=== PATIENT | male | born 1945 | race Caucasian/White ===

== ENCOUNTER 2020-07-15 09:48 | Outpatient (CLI) | payer OTHER, MEDICARE ==
--- NOTE | 2020-07-17 15:58 | MRI Report ---
PROCEDURE: Lumbar Spine W/O INDICATIONS: LEG WEAKNESS TECHNIQUE: Noncontrast sagittal T1 spin echo and T2 fast echo, sagittal STIR, axial T1 and T2 fast spin echo thr ough the lumbar spine. In cases with scoliosis, additional coronal T2 fast spin echo may be performe d. COMPARISON: None. FINDINGS: Image quality: Excellent. Alignment and Curvature: There are bilateral L5 pars defects with anterolisthesis of L5 on S1 measuri ng approximately 8 mm. There other vertebral bodies are normally aligned. Bone Marrow: Marrow is of normal overall signal. No acute vertebral body compression fractures. Spinal Cord: Conus medullaris terminates at the L1 level. Visualized cord demonstrates normal signa l and size. Paraspinous Soft Tissues: No paravertebral masses. T12-L1: No canal stenosis or foraminal stenosis. L1-L2: Mild disc bulge. Mild facet hypertrophy. No canal stenosis or foraminal stenosis. L2-L3: Mild disc bulge. Mild facet hypertrophy. No central canal stenosis. Moderate bilateral fora luis antonio narrowing with mild flattening deformity on the exiting bilateral L2 nerve roots. L3-L4: Disc bulge. Facet hypertrophy. No central canal stenosis. Moderate to severe bilateral lizy inal narrowing with flattening deformity on the exiting bilateral L3 nerve roots. L4-L5: Moderate disc bulge. Facet hypertrophy. Mild canal stenosis. Severe right foraminal narrowin g and moderately severe left foraminal narrowing with impression on the bilateral exiting L4 nerve ro ots. L5-S1: Bilateral L5 pars defects. Grade 1 anterolisthesis of L5 on S1. Large diffuse disc bulge. Fa cet hypertrophy. Moderate canal stenosis seen best on sagittal imaging. Axial imaging under estimates the degree of canal stenosis. The combination of anterolisthesis of L5 on S1 and bilateral foraminal disc bulges results in severe bilateral foraminal narrowing and bilateral L5 foraminal nerve root im pingement. IMPRESSION: 1. Findings are most significant at L5-S1. There are bilateral L5 pars defects. There is grade 1 ante rolisthesis of L5 on S1. There is moderate canal stenosis and there is severe bilateral foraminal alex rowing. 2. There is mild canal stenosis at L4-L5. 3. Significant multilevel foraminal narrowing. There is moderate bilateral foraminal narrowing at L2- L3, moderate to severe bilateral foraminal narrowing at L3-L4, severe right and moderately severe lef t foraminal narrowing at L4-L5, and severe bilateral foraminal narrowing at L5-S1. Reviewed by: Anton Chowdhury MD on 07/17/2020 3:57 PM PST Approved by: Anton Chowdhury MD on 07/17/2020 3:57 PM PST Station ID: [id number]
== END 2020-07-15 09:49 | disposition home or self-care (01) ==
LOC: DI 09:48
PROVIDERS: ATTEND Internal Medicine
DX: R53.1 Weakness (principal); R29.898 Other symptoms and signs involving the musculoskeletal system; M48.07 Spinal stenosis, lumbosacral region

== ENCOUNTER 2020-10-20 07:35 | Outpatient (CLI) | payer OTHER, MEDICARE ==
[2020-10-20 15:02] LABS: BILIRUBIN,URINE NEGATIVE (NEGATIVE); GLUCOSE, URINE (UA) NEGATIVE (NEGATIVE); KETONES,URINE (UA) NEGATIVE (NEGATIVE); LEUKOCYTE ESTERASE, URINE NEGATIVE (NEGATIVE); NITRITE,URINE NEGATIVE (NEGATIVE); OCCULT BLOOD,URINE TRACE-INTA (NEGATIVE); PH,URINE 5.5 PH (5.0-7.5); PROTEIN,URINE NEGATIVE (NEGATIVE); UROBILINOGEN,URINE 0.2 (NORMAL) E.U./dL (NORMAL)
[2020-10-20 15:12] LABS: CLARITY,URINE CLEAR (CLEAR)
== END 2020-10-20 07:36 | disposition home or self-care (01) ==
LOC: LAB.S 07:35
PROVIDERS: ATTEND Internal Medicine
DX: R39.15 Urgency of urination (principal); R60.9 Edema, unspecified
CPT/HCPCS: 81001; 81003; 87086

== ENCOUNTER 2020-11-10 09:33 | Outpatient (CLI) | payer OTHER ==
--- NOTE | 2020-11-10 10:23 | CT Report ---
PROCEDURE: HEAD WO INDICATIONS: MEMORY PROBLEMS, BALANCE PROBLEMS TECHNIQUE: Noncontrast 4.5 mm thick angled axial sections acquired from the foramen magnum to the vertex. For r adiation dose reduction, the following was used: automated exposure control, adjustment of mA and/or kV according to patient size. COMPARISON: None FINDINGS: Image quality: Excellent. CSF spaces: Basal cisterns are patent. No extra-axial fluid collections. The ventricles are symmet tre in size and shape. Brain: No intracranial bleeds or masses. There is cerebral volume loss for age, with resultant vent ricular and sulcal prominence. There are periventricular and deep white matter chronic small vessel ischemic changes. There is intracranial internal carotid artery atherosclerosis. Skull and face: Calvarium and visualized facial bones appear intact, without suspicious lesions. Sinuses: Visualized sinuses and mastoids are clear. IMPRESSION: No acute intracranial disease process. Reviewed by: Marta Hernandez MD, PhD on 11/10/2020 10:21 AM PDT Approved by: Marta Hernandez MD, PhD on 11/10/2020 10:21 AM PDT Station ID: [id number]
== END 2020-11-10 09:34 | disposition home or self-care (01) ==
LOC: DI 09:33
PROVIDERS: ATTEND Nurse Practitioner Family
DX: R26.89 Other abnormalities of gait and mobility (principal)

== ENCOUNTER 2021-03-07 08:30 | Outpatient (CLI) | payer OTHER, MEDICARE ==
--- NOTE | 2021-03-07 10:24 | MRI Report ---
PROCEDURE: Cervical Spine W/O INDICATIONS: HYPERREFLEXIA ARM AND LEG WEAKNESS TECHNIQUE: Noncontrast sagittal T1 spin echo and T2 fast spin echo, sagittal STIR, foraminal oblique sagittal T2 fast spin echo, and axial gradient echo or T2 fast spin echo through the cervical spine. COMPARISON: None. FINDINGS: Image quality: Excellent. Alignment and Curvature: Mild degenerative retrolisthesis of C6 on C7. Mild degenerative retrolisthes is of C5 on C6. Chronic anterior vertebral body height loss of C5 and C6. Trace degenerative retrolis thesis of C3 on C4. Reversal of normal lordotic curve of the cervical spine. Bone Marrow: Marrow demonstrates normal overall signal. Spinal Cord: At the level of high-grade canal stenosis, there is thinning of the cord and abnormal si gnal consistent with myelomalacia,, centered at C5-C6 and C6. No cerebellar tonsillar herniation. Paraspinous Soft Tissues: No paravertebral masses. Prevertebral soft tissues are normal in thicknes s. C2-C3: Mild disc bulge. No canal stenosis. Marked left facet hypertrophy. Severe left foraminal narr owing with left foraminal C3 nerve root impingement. C3-C4: Trace retrolisthesis of C3 on C4, diffuse posterior disc plus osteophyte, and short pedicles result in moderate canal stenosis with flattening of the ventral cord. There is a large right uncove rtebral joint osteophyte and a moderately large left vertebral joint osteophyte. There is bilateral f acet hypertrophy. There is marked right foraminal narrowing with obliteration of the right C4 nerve r oot. There is severe right lateral recess stenosis. There is moderate to severe left foraminal narrow ing with flattening deformity on the exiting left C4 nerve root. C4-C5: Diffuse posterior osteophyte with prominent bilateral uncovertebral joint osteophytes. Mild c anal stenosis. AP diameter of the canal is 9 mm. Bilateral facet hypertrophy. Severe bilateral forami nal narrowing with bilateral foraminal C5 nerve root impingement. C5-C6: Large bulky diffuse disc plus osteophyte, eccentric to the right, with high-grade canal steno sis and associated myelomalacia. Marked right lateral recess stenosis. Large bilateral uncovertebral joint osteophytes. Bilateral facet hypertrophy. Marked bilateral foraminal narrowing with bilateral f oraminal C6 nerve root impingement. C6-C7: Diffuse posterior disc plus osteophyte. Moderate to severe canal stenosis. Large bilateral un covertebral joint osteophytes with severe bilateral lateral recess stenosis. Bilateral facet hypertro phy. Marked bilateral foraminal narrowing with impingement on the bilateral C7 nerve roots. C7-T1: Mild disc bulge. No significant canal stenosis. Bilateral uncovertebral joint hypertrophy and facet arthropathy. Severe bilateral foraminal narrowing with impingement on the exiting bilateral C8 nerve roots. IMPRESSION: 1. Diffuse severe spondylitic change. 2. There is high-grade canal stenosis at C5-C6 with associated myelomalacia. Cord signal abnormality extends from C5-C6 through the C6 level. 3. Canal stenosis is moderate at C3-C4, mild at C4-C5, and moderate to severe at C6-C7. 4. Significant multilevel bilateral foraminal narrowing with multiple levels of severe or marked fora luis antonio narrowing with foraminal nerve root impingement, as described above. Reviewed by: Anton Chowdhury MD on 03/07/2021 10:23 AM PDT Approved by: Anton Chowdhury MD on 03/07/2021 10:23 AM PDT Station ID: [id number]
== END 2021-03-07 08:31 | disposition home or self-care (01) ==
LOC: DI 08:30
PROVIDERS: ATTEND Nurse Practitioner Family
DX: R29.2 Abnormal reflex (principal); R29.898 Other symptoms and signs involving the musculoskeletal system; M43.12 Spondylolisthesis, cervical region; G95.89 Other specified diseases of spinal cord; M48.02 Spinal stenosis, cervical region; M47.812 Spondylosis without myelopathy or radiculopathy, cervical region; M25.78 Osteophyte, vertebrae

== ENCOUNTER 2021-09-13 10:30 | Outpatient (CLI) | payer OTHER ==
--- NOTE | 2021-09-13 14:21 | XRAY Report ---
PROCEDURE: Cervical Spine 2 View INDICATIONS: NECK PAIN TECHNIQUE: 3 view(s) of the cervical spine were acquired. COMPARISON: MRI cervical spine 03/07/2021 FINDINGS: Bones: No fractures or dislocations to the C7-T1 level. The lateral masses of C1 appear intact on t he odontoid view. No suspicious bony lesions. Posterior fusion is present at C3-T1. It is noted anna t posterior fusion hardware is overlying the pedicle/lamina at C3 and C4 on lateral view. Fixation sc rews are noted overlying the C4 disc space as well as the posterior most aspect of the C5 vertebral b miracle as well as posterior most aspect of the C6 vertebral body. Fixation screws are noted overlying th e majority of the C7 and T1 vertebral bodies. Our hardware is intact without fracture. There is multi level moderate to severe disc space narrowing most severe at C5-6, C6-7. Multilevel uncovertebral hyp ertrophy are present. Soft tissues: No prevertebral soft tissue swelling. IMPRESSION: Multilevel surgical fusion with placement of surgical hardware as above. Reviewed by: Kimberly Maki MD on 09/13/2021 2:20 PM PDT Approved by: Kimberly Maki MD on 09/13/2021 2:20 PM PDT Station ID: [id number]
== END 2021-09-13 10:31 | disposition home or self-care (01) ==
LOC: DI.S 10:30
PROVIDERS: ATTEND Internal Medicine
DX: M47.812 Spondylosis without myelopathy or radiculopathy, cervical region (principal); Z98.1 Arthrodesis status

== ENCOUNTER 2021-11-01 11:36 | Outpatient (CLI) | payer MEDICARE, MEDICAID | END 2021-11-01 11:37 | disposition critical access hospital (66) | LOC: EMS 11:36 | DX: R53.1 Weakness (principal) | CPT/HCPCS: A0425; A0429 ==

== ENCOUNTER 2021-11-01 12:04 | Inpatient (IN) | payer MEDICARE, MEDICAID ==
--- NOTE | 2021-11-01 12:29 | ED Physician Documentation ---
History of Present Illness - Stated complaint Stated Complaint: WEAKNESS - Chief complaint Chief Complaint: Neuro - History obtained from History obtained from: Patient - History of Present Illness Timing: How many days ago (4) - Additonal information Additional information: 75-year-old male with no reported past medical history presents by EMS from home for several weeks of gradually worsening generalized weakness, worse in his lower extremities. Patient states that 6 months ago he had a cervical spinal fusion done at [facility] in [place], since that time he has noticed a gradual decline in his function, especially so in the last 4 to 5 days. EMS reports that the patient's apartment was extraordinarily filthy and poorly kept. Patient appeared to be covered in filth and in old, soiled clothes. Initial blood pressure was 90s systolic, however corrected to 100 systolic in route. On arrival patient stated that he felt weak all over, particularly in his bilateral lower extremities. He states that his lower extremities have gradually swollen since his discharge from the hospital, however he does not know the cause. It is increasingly difficult for him to get around the house. Denies any pain at this time. Review of Systems Ten Systems: 10 systems reviewed and negative Constitutional: denies: Fever, Chills, Myalgias, Fatigue, Weight Loss, Sweats, Reviewed and negative, Other Cardiac: denies: Chest pain / pressure, Palpitations, Pedal edema, Calf pain, Reviewed and negative, Other : denies: Dysuria, Frequency, Hesitancy, Unable to Void, Incontinent, Hematuria, Discharge, LMP, Vaginal bleeding, Irregular menses, Missed period, Now EGA, Control, Hysterectomy, Testicular pain, Testicular mass, Claros Problem, Reviewed and negative, Other Skin: denies: Rash, Lesions Neurologic: reports: Generalized weakness. denies: Focal weakness, Difficulty speaking, Syncope, Seizure PD PAST MEDICAL HISTORY - Allergies Allergies/Adverse Reactions: Allergies Allergy/AdvReac Type Severity Reaction Status Date / Time No Known Drug Allergies Allergy Verified 11/01/21 12:19 PD ED PE NORMAL - General General: Alert and oriented X 3, Other (hygiene poor, appears chronically ill) - HEENT HEENT: Atraumatic, PERRL, EOMI, Ears normal - Neck Neck: Supple, no meningeal sign, No bruit - Cardiac Cardiac: RRR, No murmur - Respiratory Respiratory: No respiratory distress, Clear bilaterally - Abdomen Abdomen: Normal bowel sounds, Soft, Non tender, Non distended - Back Back: No CVA TTP, No spinal TTP - Derm Derm: Normal color, Warm and dry, Other (decreased temperature bilateral feet, purple-su hue) - Extremities Extremities: No deformity, Normal ROM s pain, Other (Bilat 2+ edema to shins) - Neuro Neuro: Alert and oriented X 3, general claims agent 2-12 intact, No motor deficit, No sensory deficit - Psych Psych: Normal mood, Normal affect Results - Vitals Vitals: Vital Signs - 24 hr 11/01/21 11/01/21 12:14 14:00 Temperature 36.9 C Heart Rate 87 89 Respiratory 12 11 L Rate Blood Pressure 106/88 H 115/94 H O2 Saturation 100 97 Oxygen O2 Source Room air - EKG (time done) 1320 Rate: Rate (enter#) [place]: Normal Intervals: Normal TN Ischemia: T wave inversion, Other (No priors for comparison, no STEMI) - Labs Labs: Laboratory Tests 11/01/21 11/01/21 11/01/21 12:30 12:30 12:30 WBC 8.5 RBC 4.45 L Hgb 14.2 Hct 45.7 MCV 102.7 H MCH 31.9 H MCHC 31.1 L RDW 15.6 H Plt Count 196 MPV 12.1 H Neut # (Auto) 5.5 Lymph # (Auto) 2.1 [place] # (Auto) 0.8 Eos # (Auto) 0.1 Baso # (Auto) 0.0 Absolute Nucleated RBC 0.05 Nucleated RBC % 0.6 Sodium 133 L Potassium 4.3 Chloride 98 L Carbon Dioxide 21 Anion Gap 14.0 H BUN 26 H Creatinine 1.1 Estimated GFR (MDRD) 65 L Glucose 91 Calcium 9.2 Total Bilirubin 0.8 AST 155 H ALT 141 H Alkaline Phosphatase 173 H Troponin I High Sens 100.6 H* B-Natriuretic Peptide Total Protein 7.9 Albumin 3.9 Globulin 4.0 Albumin/Globulin Ratio 1.0 Urine Color Urine Clarity Urine pH Ur Specific [place] Urine Protein Urine Glucose (UA) Urine Ketones Urine Occult Blood Urine Nitrite Urine Bilirubin Urine Urobilinogen Ur Leukocyte Esterase Urine RBC Urine WBC Ur Squamous Epith Cells Urine Bacteria Urine Culture Comments 11/01/21 11/01/21 12:30 13:30 WBC RBC Hgb Hct MCV MCH MCHC RDW Plt Count MPV Neut # (Auto) Lymph # (Auto) [place] # (Auto) Eos # (Auto) Baso # (Auto) Absolute Nucleated RBC Nucleated RBC % Sodium Potassium Chloride Carbon Dioxide Anion Gap BUN Creatinine Estimated GFR (MDRD) Glucose Calcium Total Bilirubin AST ALT Alkaline Phosphatase Troponin I High Sens B-Natriuretic Peptide 1696 H Total Protein Albumin Globulin Albumin/Globulin Ratio Urine Color YELLOW Urine Clarity CLEAR Urine pH 5.5 Ur Specific [place] >=1.030 H Urine Protein TRACE Urine Glucose (UA) NEGATIVE Urine Ketones NEGATIVE Urine Occult Blood NEGATIVE Urine Nitrite NEGATIVE Urine Bilirubin NEGATIVE Urine Urobilinogen 0.2 (NORMAL) Ur Leukocyte Esterase NEGATIVE Urine RBC 0-5 Urine WBC 0-3 Ur Squamous Epith Cells RARE Squamous Urine Bacteria None Seen Urine Culture Comments NOT INDICATED PD MEDICAL DECISION MAKING - ED course ED course: Patient with generalized weakness, reported to be in filthy and unlivable conditions by EMS. No focal neurologic deficit, this is not a stroke alert. Bilateral pedal swelling and decreased temperature. Pulses are obtainable with Doppler, however will assess for vascular injury with ultrasound. Labs are significant for troponin of 100, elevated liver enzymes. There are no priors for comparison. EKG shows diffuse T wave inversions of uncertain chronicity. Patient adamantly denies any pain and states he has never had any pain, including in his chest. BNP is 1600, however chest x-ray is clear. BUN is moderately elevated, will give IV fluids for hydration. Patient does not have safe discharge plan and will admit for further treatment. Departure - Departure Disposition: 66 [facility] DC/Xfer Clinical Impression: Generalized weakness, Failure to thrive syndrome, adult, Liver enzyme elevation
[2021-11-01 12:38] LABS: BASOPHILS % (AUTO) 0.5 %; EOSINOPHILS # (AUTO) 0.1 10^3/uL (0.0-0.7); EOSINOPHILS % (AUTO) 0.6 %; HCT - HEMATOCRIT 45.7 % (42.0-52.0); HGB - HEMOGLOBIN 14.2 g/dL (14.0-18.0); LYMPHOCYTES # (AUTO) 2.1 10^3/uL (1.5-3.5); LYMPHOCYTES % (AUTO) 25.2 %; MEAN CORPUSCULAR HEMOGLOBIN 31.9 pg (27.0-31.0); MEAN CORPUSCULAR HGB CONC 31.1 g/dL (32.0-36.0); MEAN CORPUSCULAR VOLUME 102.7 fL (80.0-94.0); MEAN PLATELET VOLUME 12.1 fL (7.4-11.4); MONOCYTES # (AUTO) 0.8 10^3/uL (0.0-1.0); NEUTROPHILS # (AUTO) 5.5 10^3/uL (1.5-6.6); NEUTROPHILS % (AUTO) 64.2 %; NRBC ABSOLUTE COUNT (AUTO) 0.05 x10^3/uL; NUCLEATED RED BLOOD CELLS AUTO 0.6 /100WBC; PLT - PLATELET COUNT 196 10^3/uL (130-450); RED BLOOD COUNT 4.45 10^6/uL (4.70-6.10); RED CELL DISTRIBUTION WIDTH 15.6 % (12.0-15.0); WHITE BLOOD COUNT 8.5 x10^3/uL (4.8-10.8)
--- NOTE | 2021-11-01 12:52 | XRAY Report ---
PROCEDURE: Chest 1 View X-Ray INDICATIONS: gen weakness TECHNIQUE: One view of the chest was acquired. COMPARISON: None FINDINGS: Surgical changes and devices: Partially visualized cervical fixation screws are present. Lungs and pleura: No pleural effusions or pneumothorax. Lungs are clear. Lungs are hyperexpanded s uggestive COPD. Mediastinum: Mediastinal contours appear normal. Heart size is normal. Bones and chest wall: No suspicious bony lesions. Overlying soft tissues appear unremarkable. IMPRESSION: No acute pulmonary process. Reviewed by: Kimberly Maki MD on 11/01/2021 12:51 PM PDT Approved by: Kimberly Maki MD on 11/01/2021 12:51 PM PDT Station ID: [id number]
[2021-11-01 12:58] LABS: ALBUMIN 3.9 g/dL (3.2-5.5); BILIRUBIN,TOTAL 0.8 mg/dL (0.2-1.0); CALCIUM 9.2 mg/dL (8.5-10.3); CREATININE 1.1 mg/dL (0.6-1.2); POTASSIUM 4.3 mmol/L (3.5-5.0); TOTAL PROTEIN 7.9 g/dL (6.7-8.2)
--- NOTE | 2021-11-01 13:38 | Ultrasound Report ---
PROCEDURE: Duplex Lwr Ext Arterial Bilat INDICATIONS: COLD AND SWOLLEN LOWER EXTREMITIES TECHNIQUE: Color and pulse Doppler interrogation was performed of both lower extremity arterial systems, with im age documentation. COMPARISON: None FINDINGS: Right lower extremity: Common femoral artery: 38 cm/sec, with triphasic flow. Deep femoral artery: 41 cm/sec, with triphasic flow. Proximal superficial femoral artery: 52 cm/sec, with triphasic flow. Mid superficial femoral artery: 58 cm/sec, with triphasic flow. Distal superficial femoral artery: 40 cm/sec, with triphasic flow. Popliteal artery: 40 cm/sec, with triphasic flow. Posterior tibial artery: 30 cm/sec, with triphasic flow. Anterior tibial artery/dorsalis pedis: 52 cm/sec, with triphasic flow. Arizmendi-scale imaging description: Mild diffuse plaque Left lower extremity: Common femoral artery: 29 cm/sec, with triphasic flow. Deep femoral artery: 27 cm/sec, with triphasic flow. Proximal superficial femoral artery: 40 cm/sec, with triphasic flow. Mid superficial femoral artery: 49 cm/sec, with triphasic flow. Distal superficial femoral artery: 33 cm/sec, with triphasic flow. Popliteal artery: 34 cm/sec, with triphasic flow. Posterior tibial artery: 42 cm/sec, with triphasic flow. Anterior tibial artery/dorsalis pedis: 43 cm/sec, with triphasic flow. Arizmendi-scale imaging description: Mild diffuse plaque IMPRESSION: No evidence of arterial insufficiency to the bilateral lower extremities. Reviewed by: Devyn Lechuga MD on 11/01/2021 1:37 PM PDT Approved by: Devyn Lechuga MD on 11/01/2021 1:37 PM PDT Station ID: [id number]
[2021-11-01 13:53] LABS: BILIRUBIN,URINE NEGATIVE (NEGATIVE); GLUCOSE, URINE (UA) NEGATIVE (NEGATIVE); KETONES,URINE (UA) NEGATIVE (NEGATIVE); LEUKOCYTE ESTERASE, URINE NEGATIVE (NEGATIVE); NITRITE,URINE NEGATIVE (NEGATIVE); OCCULT BLOOD,URINE NEGATIVE (NEGATIVE); PH,URINE 5.5 PH (5.0-7.5); PROTEIN,URINE TRACE mg/dL (NEGATIVE); UROBILINOGEN,URINE 0.2 (NORMAL) E.U./dL (NORMAL)
[2021-11-01 14:01] LABS: BACTERIA,URINE None Seen /HPF (None Seen); CLARITY,URINE CLEAR (CLEAR); RBC,URINE 0-5 /HPF (0-5); SQUAMOUS EPITHELIAL CELL,UR RARE Squamous (<= Few); WBC,URINE 0-3 /HPF (0-3)
[2021-11-01] MEDS ORDERED: SODIUM CHLORIDE 0.9% 500 ML IV ONE (14:31)
[2021-11-01 18:26] LABS: ETOH - ETHANOL < 5.0 mg/dL
[2021-11-01 18:28] LABS: CK- CREATINE KINASE 1175 IU/L (22-269)
[2021-11-01 19:19] LABS: B. PARAPERTUSSIS- RESP PCR PAN NOT DETECTED; B. PERTUSSIS- RESP PCR PANEL NOT DETECTED; C. PNEUMONIAE- RESP PCR PANEL NOT DETECTED; CORONAVIRUS 229E-RESP PCR NOT DETECTED; CORONAVIRUS HKU1-RESP PCR NOT DETECTED; CORONAVIRUS NL63-RESP PCR NOT DETECTED; CORONAVIRUS OC43-RESP PCR NOT DETECTED; HUMAN METAPNEUMOVIRUS NOT DETECTED; INFLUENZA A- RESP PCR PANEL NOT DETECTED; INFLUENZA B - RESP PCR PANEL NOT DETECTED; M. PNEUMONIAE- RESP PCR PANEL NOT DETECTED; PARAINFLUENZA VIRUS 1 NOT DETECTED; PARAINFLUENZA VIRUS 2 NOT DETECTED; PARAINFLUENZA VIRUS 3 NOT DETECTED; PARAINFLUENZA VIRUS 4 NOT DETECTED; RHINOVIRUS/ENTEROVIRUS NOT DETECTED; RSV- RESP PCR PANEL NOT DETECTED; SARS-CoV-2 -RESP PCR PANEL NOT DETECTED
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
[2021-11-01] MEDS: SODIUM CHLORIDE 0.9% 1,000 ML IV SCH (20:50)
[2021-11-02 05:27] LABS: BASOPHILS # (AUTO) 0.1 10^3/uL (0.0-0.1); BASOPHILS % (AUTO) 0.7 %; EOSINOPHILS % (AUTO) 0.3 %; HCT - HEMATOCRIT 41.1 % (42.0-52.0); HGB - HEMOGLOBIN 13.1 g/dL (14.0-18.0); LYMPHOCYTES # (AUTO) 1.6 10^3/uL (1.5-3.5); LYMPHOCYTES % (AUTO) 17.3 %; MEAN CORPUSCULAR HEMOGLOBIN 32.2 pg (27.0-31.0); MEAN CORPUSCULAR HGB CONC 31.9 g/dL (32.0-36.0); MEAN PLATELET VOLUME 12.1 fL (7.4-11.4); MONOCYTES # (AUTO) 0.9 10^3/uL (0.0-1.0); MONOCYTES % (AUTO) 9.3 %; NEUTROPHILS # (AUTO) 6.6 10^3/uL (1.5-6.6); NEUTROPHILS % (AUTO) 71.7 %; NRBC ABSOLUTE COUNT (AUTO) 0.06 x10^3/uL; NUCLEATED RED BLOOD CELLS AUTO 0.7 /100WBC; PLT - PLATELET COUNT 202 10^3/uL (130-450); RED BLOOD COUNT 4.07 10^6/uL (4.70-6.10); RED CELL DISTRIBUTION WIDTH 15.8 % (12.0-15.0); WHITE BLOOD COUNT 9.2 x10^3/uL (4.8-10.8)
[2021-11-02 05:41] LABS: ALBUMIN 3.6 g/dL (3.2-5.5); BILIRUBIN,TOTAL 1.1 mg/dL (0.2-1.0); CREATININE 1.2 mg/dL (0.6-1.2); POTASSIUM 4.1 mmol/L (3.5-5.0); TOTAL PROTEIN 7.2 g/dL (6.7-8.2)
[2021-11-02] MEDS: SODIUM CHLORIDE 0.9% 1,000 ML IV SCH ×2 (06:04→15:43)
[2021-11-02] MEDS: ACETAMINOPHEN 325 MG TABLET PO PRN (06:04)
[2021-11-02] MEDS: SODIUM CHLORIDE FLUSH 0.9% 10 ML SYRINGE IVP SCH ×3 (09:52→16:20)
[2021-11-02] MEDS: ENOXAPARIN 40 MG/0.4 ML SYRINGE SUBQ SCH (09:52)
[2021-11-02] MEDS: MULTIVITAMIN W/MINERALS TABLET PO SCH (16:36)
--- NOTE | 2021-11-02 16:53 | PHARMACY PROGRESS NOTE ---
- Best Possible Medication History Admit Date and Time: 11/01/211944 Processed by: Pharmacy Medication History completed: Yes Patient Interview: Completed Secondary Source(s): Insurance records As the person ultimately responsible for medication therapy, providers are able to order a medication from an existing home medication list in [facility] via the "Reconcile Routine" prior to Confirmation of that medication by computer support analyst. Such practice is discouraged except when the physician, in their clinical judgment, deems that a medical need exists for a medication without regard to previous use.
[2021-11-02] MEDS: ONDANSETRON 4 MG/2 ML VIAL IVP PRN (17:05)
--- NOTE | 2021-11-02 18:46 | PROVIDER PROGRESS NOTE ---
Assessment/Plan - Problem List (1) Rhabdomyolysis Assessment/Plan: Likely secondary to patient's sedentary nature. His mobility and activities have been decreased due to spinal stenosis and recent C-spine surgery at [facility]. His sister came up from [facility] to help him recently. OT with home health was working with him at his residence. Creatinine kinase was 1175>> increased today to 1200 Continue IV hydration with normal saline. Rate is not aggressive to avoid pulm edema since his EF is not known and he has elevated troponins. We will monitor creatinine kinase daily. (2) Prerenal azotemia Conclusion/Plan: He is clinically very dehydrated. His BUN/creat have not yet improved with iv fluids. It was learned today that the patient cannot use utensils, he needs to be fed. He was getting Meals on Wheels but either forgot to feed himself or could not. We will continue to give IV fluids. Avoid nephrotoxins. Follow BMP daily (3) Failure to thrive syndrome, adult Conclusion/Plan: Suspect severe protein calorie malnutrition. We will consult nutrition to help manage. He needs feeding, has difficulty with utensils. Awaiting OT and PT evals Currently giving IV hydration with normal saline. We may add D5 for more calories (4) Generalized weakness Conclusion/Plan: PT/OT to evaluate and treat Suspect patient will benefit from further rehab at a SNF. Social work to help facilitate disposition plan (5) Eczema Conclusion/Plan: The patient has a very unique physical exam that shows very taut and thick skin, he cannot even make a fist because of how tight his skin is. He does not know his underlying diagnosis for this. Records were therefore requested from his PCP Dr. Guzman. The records indicate that he has HTN, COPD, glaucoma, spinal stenosis, hypothyroidism and eczema. Perhaps the eczema caused these skin changes along with dehydration He was not on any specific medicines for this, no creams or steroids. (6) Elevated troponin Conclusion/Plan: He has an elevated but flat troponins (100>> 82), and a moderately elevated be BNP (1696>> 2017 after iv hydration). Chest x-ray was clear, and no evidence of CHF clinically, but he is dehydrated. From Dr. Guzman's office records there is no cardiac history except for HTN. Will order an Echocardiogram (however today is Friday and we have no nursery technician here Friday through Friday). We will continue to give the IV hydration gingerly to avoid pulm edema. - Current Meds Current Meds: Current Medications Generic Name Dose Route Start Last Admin Trade Name Freq PRN Reason Stop Dose Admin Acetaminophen 650 mg 11/01/21 19:45 11/02/21 06:04 Acetaminophen 325 Mg Tablet PO 650 mg Q4HR PRN Administration Pain 1 to 4, or Fever Enoxaparin Sodium 40 mg 11/02/21 09:00 11/02/21 09:52 Enoxaparin 40 Mg/0.4 Ml Syringe SUBQ 40 mg DAILY STELLA Administration Sodium Chloride 1,000 mls @ 100 mls/hr 11/01/21 20:00 11/02/21 15:43 Normal Saline 0.9% IV 100 mls/hr .Q10H STELLA Administration Multivitamins/Minerals 1 tab 11/02/21 17:00 11/02/21 16:36 Multivitamin W/Minerals Tablet PO 1 tab DAILYWM STELLA Administration Ondansetron HCl 4 mg 11/01/21 19:45 11/02/21 17:05 Ondansetron 4 Mg/2 Ml Vial IVP 4 mg Q6HR PRN Administration Nausea / Vomiting Sodium Chloride 10 ml 11/02/21 01:00 11/02/21 16:20 Sodium Chloride Flush 0.9% 10 Ml Syringe IVP Not Given 0100,0900,1700 STELLA - Lab Result Fish Bone Diagrams: 11/03/21 03:45 11/03/21 04:16 - Additional Planning My Orders: My Active Orders 11/02/21 05:07 FOLATE [IAI] Routine VITAMIN B12 [IAI] Routine 11/02/21 10:33 Nutrition Consult [CONS] Routine 11/02/21 Dinner Cardiac Diet [DIET] 11/02/21 17:00 Multivitamin W/Minerals [Theragran M] 1 tab PO DAILYWM 11/03/21 09:00 Cholecalciferol [Vitamin D3] 50 mcg PO DAILY Subjective - Subjective Patient Reports: No Complaints Nursing Reports: Other (Needs to be fed) Objective Vital Signs: Vital Signs - 24 hr 11/01/21 11/01/21 11/02/21 20:00 21:00 00:00 Temperature 36.5 C 36.6 C 36.4 C L Heart Rate 90 Heart Rate [ 105 H 104 H Brachial] Heart Rate [ Sitting] Heart Rate [ Standing] Heart Rate [ Supine] Respiratory 15 19 18 Rate Blood Pressure 102/73 Blood Pressure 98/72 89/65 L [Right Brachial artery] Blood Pressure [Sitting] Blood Pressure [Standing] Blood Pressure [Supine] O2 Saturation 94 96 11/02/21 11/02/21 11/02/21 06:00 07:24 10:58 Temperature 36.2 C L 36.2 C L Heart Rate Heart Rate [ 108 H 102 H Brachial] Heart Rate [ 113 H Sitting] Heart Rate [ 115 H Standing] Heart Rate [ 105 H Supine] Respiratory 20 18 Rate Blood Pressure Blood Pressure 94/68 91/67 [Right Brachial artery] Blood Pressure 100/82 H [Sitting] Blood Pressure 86/70 L [Standing] Blood Pressure 87/64 L [Supine] O2 Saturation 92 11/02/21 11/02/21 11:00 15:32 Temperature 36.5 C Heart Rate Heart Rate [ 101 H Brachial] Heart Rate [ 113 H Sitting] Heart Rate [ 115 H Standing] Heart Rate [ 105 H Supine] Respiratory 19 Rate Blood Pressure Blood Pressure 97/70 [Right Brachial artery] Blood Pressure 100/82 H [Sitting] Blood Pressure 86/70 L [Standing] Blood Pressure 87/64 L [Supine] O2 Saturation 94 Oxygen O2 Source Room air I&O (Last 24 Hrs): Intake and Output Totals x24h 10/31/21 11/01/21 11/02/21 23:59 23:59 23:59 Intake Total 500 2388.333 Balance 500 2388.333 General: Alert, Other (Cachectic. MAle pattern baldness. Slow speech but talks at length but quietly (is very weak)) HEENT: Other (Dry mucosa) Neck: Supple Neuro: Alert, Other (generalized weakness, slow speech) Cardiovascular: Regular rate Respiratory: No respiratory distress Abdomen: Soft Extremities: No edema, Other (Skin is overall very thick and very dry and taut) - Results Results: Laboratory Results WBC 9.2 x10^3/uL (4.8-10.8) 11/02/21 05:07 RBC 4.07 10^6/uL (4.70-6.10) L 11/02/21 05:07 Hgb 13.1 g/dL (14.0-18.0) L 11/02/21 05:07 Hct 41.1 % (42.0-52.0) L 11/02/21 05:07 MCV 101.0 fL (80.0-94.0) H 11/02/21 05:07 MCH 32.2 pg (27.0-31.0) H 11/02/21 05:07 MCHC 31.9 g/dL (32.0-36.0) L 11/02/21 05:07 RDW 15.8 % (12.0-15.0) H 11/02/21 05:07 Plt Count 202 10^3/uL (130-450) 11/02/21 05:07 MPV 12.1 fL (7.4-11.4) H 11/02/21 05:07 Neut # (Auto) 6.6 10^3/uL (1.5-6.6) 11/02/21 05:07 Lymph # (Auto) 1.6 10^3/uL (1.5-3.5) 11/02/21 05:07 [place] # (Auto) 0.9 10^3/uL (0.0-1.0) 11/02/21 05:07 Eos # (Auto) 0.0 10^3/uL (0.0-0.7) 11/02/21 05:07 Baso # (Auto) 0.1 10^3/uL (0.0-0.1) 11/02/21 05:07 Absolute Nucleated RBC 0.06 x10^3/uL 11/02/21 05:07 Nucleated RBC % 0.7 /100WBC 11/02/21 05:07 Sodium 137 mmol/L (135-145) 11/02/21 05:07 Potassium 4.1 mmol/L (3.5-5.0) 11/02/21 05:07 Chloride 104 mmol/L (101-111) 11/02/21 05:07 Carbon Dioxide 18 mmol/L (21-32) L 11/02/21 05:07 Anion Gap 15.0 (6-13) H 11/02/21 05:07 BUN 26 mg/dL (6-20) H 11/02/21 05:07 Creatinine 1.2 mg/dL (0.6-1.2) 11/02/21 05:07 Estimated GFR (MDRD) 59 (>89) L 11/02/21 05:07 Glucose 88 mg/dL (70-100) 11/02/21 05:07 Calcium 9.0 mg/dL (8.5-10.3) 11/02/21 05:07 Magnesium 2.0 mg/dL (1.7-2.8) 11/02/21 05:07 Total Bilirubin 1.1 mg/dL (0.2-1.0) H 11/02/21 05:07 AST 244 IU/L (10-42) H 11/02/21 05:07 ALT 201 IU/L (10-60) H 11/02/21 05:07 Alkaline Phosphatase 147 IU/L (42-121) H 11/02/21 05:07 Total Creatine Kinase 1238 IU/L (22-269) H* 11/02/21 05:07 Troponin I High Sens 82.0 ng/L (2.3-19.7) H* 11/01/21 15:51 B-Natriuretic Peptide 2017 pg/mL (5-100) H 11/02/21 05:07 Total Protein 7.2 g/dL (6.7-8.2) 11/02/21 05:07 Albumin 3.6 g/dL (3.2-5.5) 11/02/21 05:07 Globulin 3.6 g/dL (2.1-4.2) 11/02/21 05:07 Albumin/Globulin Ratio 1.0 (1.0-2.2) 11/02/21 05:07 Urine Color YELLOW 11/01/21 13:30 Urine Clarity CLEAR (CLEAR) 11/01/21 13:30 Urine pH 5.5 PH (5.0-7.5) 11/01/21 13:30 Ur Specific [place] >=1.030 (1.002-1.030) H 11/01/21 13:30 Urine Protein TRACE mg/dL (NEGATIVE) 11/01/21 13:30 Urine Glucose (UA) NEGATIVE mg/dL (NEGATIVE) 11/01/21 13:30 Urine Ketones NEGATIVE mg/dL (NEGATIVE) 11/01/21 13:30 Urine Occult Blood NEGATIVE (NEGATIVE) 11/01/21 13:30 Urine Nitrite NEGATIVE (NEGATIVE) 11/01/21 13:30 Urine Bilirubin NEGATIVE (NEGATIVE) 11/01/21 13:30 Urine Urobilinogen 0.2 (NORMAL) E.U./dL (NORMAL) 11/01/21 13:30 Ur Leukocyte Esterase NEGATIVE (NEGATIVE) 11/01/21 13:30 Urine RBC 0-5 /HPF (0-5) 11/01/21 13:30 Urine WBC 0-3 /HPF (0-3) 11/01/21 13:30 Ur Squamous Epith Cells RARE Squamous (<= Few) 11/01/21 13:30 Urine Bacteria None Seen /HPF (None Seen) 11/01/21 13:30 Urine Culture Comments NOT INDICATED 11/01/21 13:30 Nasal Adenovirus (PCR) NOT DETECTED 11/01/21 18:13 Nasal B. parapertussis DNA (PCR) NOT DETECTED 11/01/21 18:13 Nasal Coronavir 229E PCR NOT DETECTED 11/01/21 18:13 Nasal Coronavir HKU1 PCR NOT DETECTED 11/01/21 18:13 Nasal Coronavir NL63 PCR NOT DETECTED 11/01/21 18:13 Nasal Coronavir OC43 PCR NOT DETECTED 11/01/21 18:13 Nasal Enterovir/Rhinovir PCR NOT DETECTED 11/01/21 18:13 Nasal Influenza B PCR NOT DETECTED 11/01/21 18:13 Nasal Influenza A PCR NOT DETECTED 11/01/21 18:13 Nasal Parainfluen 1 PCR NOT DETECTED 11/01/21 18:13 Nasal Parainfluen 2 PCR NOT DETECTED 11/01/21 18:13 Nasal Parainfluen 3 PCR NOT DETECTED 11/01/21 18:13 Nasal Parainfluen 4 PCR NOT DETECTED 11/01/21 18:13 Nasal RSV (PCR) NOT DETECTED 11/01/21 18:13 Nasal B.pertussis DNA PCR NOT DETECTED 11/01/21 18:13 Nasal C.pneumoniae (PCR) NOT DETECTED 11/01/21 18:13 Zach Human Metapneumo PCR NOT DETECTED 11/01/21 18:13 Nasal M.pneumoniae (PCR) NOT DETECTED 11/01/21 18:13 Nasal SARS-CoV-2 (PCR) NOT DETECTED 11/01/21 18:13 Ethyl Alcohol < 5.0 mg/dL 11/01/21 18:05
[2021-11-02 19:16] LABS: FOLATE 14.58 ng/mL (5.90 - >24.8)
[2021-11-02] MEDS: CALCIUM CARB (OYSTER SHELL) 500 MG TABLET PO SCH (20:25)
[2021-11-02] MEDS ORDERED: CHOLECALCIFEROL 400 UNIT TABLET PO SCH (21:00)
[2021-11-03] MEDS: SODIUM CHLORIDE FLUSH 0.9% 10 ML SYRINGE IVP SCH ×3 (00:22→17:05)
[2021-11-03] MEDS: SODIUM CHLORIDE 0.9% 1,000 ML IV SCH (01:09)
[2021-11-03] MEDS: ACETAMINOPHEN 325 MG TABLET PO PRN (01:14)
[2021-11-03 03:51] LABS: BASOPHILS % (AUTO) 0.3 %; HCT - HEMATOCRIT 43.5 % (42.0-52.0); HGB - HEMOGLOBIN 13.2 g/dL (14.0-18.0); LYMPHOCYTES # (AUTO) 1.5 10^3/uL (1.5-3.5); LYMPHOCYTES % (AUTO) 9.4 %; MEAN CORPUSCULAR HEMOGLOBIN 32.1 pg (27.0-31.0); MEAN CORPUSCULAR HGB CONC 30.3 g/dL (32.0-36.0); MEAN CORPUSCULAR VOLUME 105.8 fL (80.0-94.0); MEAN PLATELET VOLUME 12.5 fL (7.4-11.4); MONOCYTES # (AUTO) 1.1 10^3/uL (0.0-1.0); MONOCYTES % (AUTO) 7.2 %; NEUTROPHILS # (AUTO) 12.7 10^3/uL (1.5-6.6); NEUTROPHILS % (AUTO) 82.2 %; NRBC ABSOLUTE COUNT (AUTO) 0.15 x10^3/uL; PLT - PLATELET COUNT 201 10^3/uL (130-450); RED BLOOD COUNT 4.11 10^6/uL (4.70-6.10); RED CELL DISTRIBUTION WIDTH 16.4 % (12.0-15.0); WHITE BLOOD COUNT 15.5 x10^3/uL (4.8-10.8)
[2021-11-03 05:00] LABS: ALBUMIN 3.3 g/dL (3.2-5.5); ALBUMIN/GLOBULIN RATIO 0.9 (1.0-2.2); BILIRUBIN,TOTAL 1.4 mg/dL (0.2-1.0); CALCIUM 8.9 mg/dL (8.5-10.3); CREATININE 1.5 mg/dL (0.6-1.2); POTASSIUM 5.2 mmol/L (3.5-5.0)
[2021-11-03] MEDS: HYDROmorphone 0.5 MG/0.5 ML SYRINGE IVP PRN (07:21)
--- NOTE | 2021-11-03 08:26 | CT Report ---
PROCEDURE: CT abdomen pelvis without contrast INDICATIONS: Abdominal pain, hypotension TECHNIQUE: Noncontrast 5 mm thick sections acquired from the diaphragms to the symphysis. 5 mm coronal and sagi ttal reformats were then performed. For radiation dose reduction, the following was used: automated exposure control, adjustment of mA and/or kV according to patient size. COMPARISON: None. FINDINGS: Image quality: Excellent. ABDOMEN: Lung bases: Bibasilar pleural effusions with compressive atelectasis. Pericardial effusion measures u p to 1.5 cm in thickness Solid organs: Liver and spleen are normal in size. Gallbladder unremarkable. Pancreas is normal in contours. No adrenal nodules. Kidneys are normal in size, without hydronephrosis or nephrolithiasi s. Peritoneum and bowel: Unenhanced bowel loops demonstrate normal wall thickness and caliber. Mild to moderate abdominal and pelvic ascites. Multiple diverticula arise from the sigmoid colon without evid ence of diverticulitis. Nodes and vessels: No retroperitoneal or mesenteric adenopathy by size criteria. Aorta and inferior vena cava are normal in caliber. Sclerotic vascular calcification noted in the abdominal aorta with out aneurysm. Miscellaneous: No ventral hernias. PELVIS: Genitourinary: Bladder wall thickness is normal. Miscellaneous: No inguinal hernias or adenopathy. Bones: No suspicious bony lesions. No vertebral body compression fractures. Diffuse subcutaneous e gwendolyn. 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 IMPRESSION: 1. Bibasal pleural effusions, abdominal and pelvic ascites, pericardial effusion and subcutaneous cory ma probably all related to fluid balance. 2. Sigmoid diverticulosis without evidence of diverticulitis. Reviewed by: Serjio Henley MD on 11/03/2021 7:25 AM HERIMLO Approved by: Serjio Henley MD on 11/03/2021 7:25 AM AKAISHA Station ID: [id number]
[2021-11-03] MEDS ORDERED: SODIUM CHLORIDE 0.9% 500 ML IV ONE (08:37)
[2021-11-03] MEDS ORDERED: CYANOCOBALAMIN 500 MCG TABLET PO SCH (09:00)
[2021-11-03] MEDS ORDERED: CHOLECALCIFEROL 25 MCG TABLET PO SCH (09:00)
[2021-11-03] MEDS: ENOXAPARIN 40 MG/0.4 ML SYRINGE SUBQ SCH (09:22)
[2021-11-03] MEDS: MULTIVITAMIN W/MINERALS TABLET PO SCH (10:03)
[2021-11-03] MEDS: ASPIRIN EC 325 MG TABLET PO SCH (10:03)
[2021-11-03] MEDS: CALCIUM CARB (OYSTER SHELL) 500 MG TABLET PO SCH ×2 (10:04→20:06)
[2021-11-03] MEDS: CHOLECALCIFEROL 5,000 UNIT CAPSULE PO SCH (10:04)
--- NOTE | 2021-11-03 12:24 | PROVIDER PROGRESS NOTE ---
Assessment/Plan - Problem List (1) Shock Assessment/Plan: His blood pressure this morning is 70-90 systolic. His lactic acid level is 8. He is hypothermic. He has cold extremities. He is more lethargic, falls asleep easily, speaks less than yesterday, but is oriented x3. He has other signs of organ failure from shock including worsening renal function, worsening LFTs, rising CK despite being on IV fluids. He appears to have multiorgan failure from shock. A bedside Echo was performed by myself (a Board-certified Drug Abuse Social Worker, credentialed in Echo here). The Echo showed: Small left atrium, massive right atrial enlargement. Small left ventricle, septum is concave inward toward the LV, paradoxical septal motion noted, LVEF approximately 55%. Massive right ventricular enlargement, RVH present, severely depressed RV contractility, consistent with R heart overload, longstanding. Dilated main pulm artery and coronary sinus, consistent with R heart overload, longstanding. Tricuspid valve prolapse noted with severe tricuspid regurgitation. Pulmonary artery systolic pressure calculated at greater than 35 mmHg. Mitral and aortic valve sclerotic thickening. Possible MVP. Trace mitral regurg. Mild pulmonic regurg. A moderate circumferential pericardial effusion is presnt, no evidence of tamponade by Doppler. The above results, results of lab tests and CT were discussed with his sister, who is at bedside today. We will try to treat with fluids and steroids (see below). If there is continued worsening of multi organs, the plan will be to stop treatment and focus on comfort. The patient's sister showed me his POLST which indicates he is wants no feeding tubes, no aggressive treatment, wants to focus on comfort. He is in critical condition and his prognosis is very poor. (2) Cor Pulmonale A CT abdomen was done this morning, due to worsening LFTs, worsening creat, new diarrhea and low BP. The CT was mostly remarkable for ascites fluid, pleural fluid, edema in tissues and a pericardial effusion. Has 2+ edema to the knees on physical exam. His EKG shows right axis deviation an RBBB. The combination of findings plus the Echo showed that he has significant right heart failure. The etiology of the cor pulmonale is not known but I suspect he might have primary pulmonary hypertension from a disease like scleroderma, since his skin is taut and thick. He is intravascularly volume depleted, even though he has leg edema, ascites and a pericardial effusion. This is all from severe cor pulmonale, severe RV failure, therefore poor forward cardiac output of the right ventricle, from probable pulmonary hypertension. Because the LV is underfilled, will restart fluids at a rapid rate. Will also start steroids empirically and because he is hypotensive we will use hydrocortisone 100 mg 3 times daily, like treatment for addisonian crisis. (3) Shock liver Conclusion/Plan: The LFTs are worsening. The patient has no alcohol intake history. The CT abdomen showed no masses or other liver abnormality. The ascites could be simply from right heart failure which is definitely present. This is most likely from shock liver, since he has worsening blood pressure, hypothermia, peripheral vasoconstriction on exam. Will treat with IV fluids to improve blood pressure and follow LFTs daily. (4) KENIA Conclusion/Plan: He is intravascularly volume depleted, even though he has leg edema, ascites and a pericardial effusion. This is all from severe cor pulmonale, severe RV failure, poor forward cardiac output of the right ventricle, from probable pulmonary hypertension. His BUN/creat have not yet improved with iv fluids. We will continue to give IV fluids. It was learned today that the patient cannot use utensils, he needs to be fed. Avoid nephrotoxins. Follow BMP daily (5) Rhabdomyolysis Assessment/Plan: Likely secondary to patient's sedentary nature. His mobility and activities have been decreased due to spinal stenosis and recent C-spine surgery at [facility]. His sister came up from [facility] to help him recently. OT with home health was working with him at his residence. Creatinine kinase was 1175>> 1200>> increased today to 1400 Will increase IV hydration rate, using normal saline. The iv rate was not aggressive to avoid pulm edema since his EF was not known and he had elevated troponins. We will monitor creatinine kinase daily. (6) Failure to thrive syndrome, adult Conclusion/Plan: Suspect severe protein calorie malnutrition. We will consult nutrition to help manage. He needs to be fed, has difficulty with utensils. Will change to a pureed diet with thin liquids IV will now have D5, for some calories (7) Generalized weakness Conclusion/Plan: PT/OT evaluated him and he fatigued yesterday after 3 seconds! If he survives, he will need rehab at a SNF. Social work to help facilitate disposition plan (8) Eczema Conclusion/Plan: The patient has a very unique physical exam that shows very taut and thick skin, he cannot even make a fist because of how tight his skin is. He does not know his underlying diagnosis for this. Records were therefore requested from his PCP Dr. Guzman. The records indicate that he has HTN, COPD, glaucoma, spinal stenosis, hypothyroidism and eczema. The sister at bedside today, said he has never had a biopsy to know if he has something else like scleroderma or Sjogren's syndrome or lupus He was not on any specific medicines for this, no creams or steroids. (9) Elevated troponin Conclusion/Plan: He has an elevated but flat troponins (100>> 82), and a moderately elevated be BNP (1696>> 2017 after iv hydration). Chest x-ray was clear, and no evidence of CHF clinically, but he is dehydrated. From Dr. Guzman's office records there is no cardiac history except for HTN. Will order an Echocardiogram (however today is Friday and we have no security system technician here Friday through Friday). We will continue to give the IV hydration gingerly to avoid pulm edema. - Current Meds Current Meds: Current Medications Generic Name Dose Route Start Last Admin Trade Name Freq PRN Reason Stop Dose Admin Acetaminophen 650 mg 11/01/21 19:45 11/03/21 01:14 Acetaminophen 325 Mg Tablet PO 650 mg Q4HR PRN Administration Pain 1 to 4, or Fever Aspirin 325 mg 11/03/21 09:00 11/03/21 10:03 Aspirin Ec 325 Mg Tablet PO Not Given DAILY STELLA Calcium Carbonate/Glycine 500 mg 11/02/21 21:00 11/03/21 10:04 Calcium Carb (Oyster Shell) 500 Mg Tablet PO Not Given BID STELLA Cholecalciferol 5,000 unit 11/03/21 09:00 11/03/21 10:04 Cholecalciferol 5,000 Unit Capsule PO Not Given DAILY STELLA Enoxaparin Sodium 40 mg 11/02/21 09:00 11/03/21 09:22 Enoxaparin 40 Mg/0.4 Ml Syringe SUBQ 40 mg DAILY STELLA Administration Hydromorphone HCl 0.5 mg 11/03/21 07:08 11/03/21 07:21 Hydromorphone 0.5 Mg/0.5 Ml Syringe IVP 0.5 mg Q4H PRN Administration PAIN Sodium Chloride 1,000 mls @ 100 mls/hr 11/01/21 20:00 11/03/21 02:40 Normal Saline 0.9% IV 0 mls/hr .Q10H STELLA Infusion Multivitamins/Minerals 1 tab 11/02/21 17:00 11/03/21 10:03 Multivitamin W/Minerals Tablet PO Not Given DAILYWM [facility] Ondansetron HCl 4 mg 11/01/21 19:45 11/02/21 17:05 Ondansetron 4 Mg/2 Ml Vial IVP 4 mg Q6HR PRN Administration Nausea / Vomiting Sodium Chloride 10 ml 11/02/21 01:00 11/03/21 07:32 Sodium Chloride Flush 0.9% 10 Ml Syringe IVP 10 ml 0100,0900,1700 STELLA Administration - Lab Result Fish Bone Diagrams: 11/03/21 03:45 11/03/21 04:16 - EKG Results EKG Interpreted Independently: Yes EKG Comparison: Unchanged from prior EKG EKG Findings: Normal sinus rhythm, rate 93, right axis deviation, right bundle branch block, inferior Q waves, lateral Q waves. Similar to admission EKG. - Diagnostic Imaging Results Diagnostic Imaging Results: Final report reviewed - Additional Planning My Orders: My Active Orders 11/02/21 17:00 Multivitamin W/Minerals [Theragran M] 1 tab PO DAILYWM 11/02/21 18:46 Miscellaenous Nursing Order [RC] ONCE 11/02/21 21:00 Calcium Carb (Oyster Shell) [Oysco-500] 500 mg PO BID 11/03/21 09:00 Aspirin EC [Ecotrin] 325 mg PO DAILY Cholecalciferol [Vitamin D3] 5,000 unit PO DAILY 11/03/21 10:40 LACTIC ACID, VENOUS [CHEM] Timed TROPONIN I HIGH SENSITIVITY [IAI] Timed 11/03/21 Lunch DIET [Dysphagia - Minced and Moist] [DIET] Subjective - Subjective Patient Reports: Other (More sleepy. Sister notices he is sleepier an weaker) Objective Vital Signs: Vital Signs - 24 hr 11/02/21 11/02/21 11/03/21 15:32 20:30 00:03 Temperature 36.5 C 36.4 C L 36.6 C Heart Rate [ 101 H 85 100 Brachial] Respiratory 19 18 14 Rate Blood Pressure 97/70 92/65 92/78 [Right Brachial artery] O2 Saturation 94 92 94 11/03/21 11/03/21 11/03/21 02:20 04:04 04:05 Temperature 36.3 C L 37.0 C 36.5 C Heart Rate [ 114 H 106 H 105 H Brachial] Respiratory 22 18 16 Rate Blood Pressure 114/95 H 97/64 93/61 [Right Brachial artery] O2 Saturation 96 94 95 11/03/21 11/03/21 11/03/21 04:36 04:56 06:06 Temperature 36.5 C 36.9 C 36.4 C L Heart Rate [ 104 H 107 H 100 Brachial] Respiratory 18 18 22 Rate Blood Pressure 91/56 L 91/62 94/67 [Right Brachial artery] O2 Saturation 96 96 89 L 11/03/21 11/03/21 06:47 08:36 Temperature 36.2 C L 36.2 C L Heart Rate [ 104 H 108 H Brachial] Respiratory 20 20 Rate Blood Pressure 111/89 H 89/72 L [Right Brachial artery] O2 Saturation Oxygen O2 Source Nasal cannula I&O (Last 24 Hrs): Intake and Output Totals x24h 11/01/21 11/02/21 11/03/21 23:59 23:59 23:59 Intake Total 500 3788.333 2295.000 Balance 500 3788.333 2295.000 General: Other (Lethargic but awakens to name, is oriented x3) HEENT: Other (Dry oral mucosa, good dentition) Neck: Supple, Other ((+) JVD in flat/supine position) Neuro: Alert, Non Focal Cardiovascular: Regular rate, No murmurs Respiratory: No respiratory distress, Breath sounds nml Abdomen: Normal bowel sounds, Soft, No tenderness Extremities: No clubbing, Other (2+ edema to the knees) - Results Results: Laboratory Results WBC 15.5 x10^3/uL (4.8-10.8) H 11/03/21 03:45 RBC 4.11 10^6/uL (4.70-6.10) L 11/03/21 03:45 Hgb 13.2 g/dL (14.0-18.0) L 11/03/21 03:45 Hct 43.5 % (42.0-52.0) 11/03/21 03:45 MCV 105.8 fL (80.0-94.0) H 11/03/21 03:45 MCH 32.1 pg (27.0-31.0) H 11/03/21 03:45 MCHC 30.3 g/dL (32.0-36.0) L 11/03/21 03:45 RDW 16.4 % (12.0-15.0) H 11/03/21 03:45 Plt Count 201 10^3/uL (130-450) 11/03/21 03:45 MPV 12.5 fL (7.4-11.4) H 11/03/21 03:45 Neut # (Auto) 12.7 10^3/uL (1.5-6.6) H 11/03/21 03:45 Lymph # (Auto) 1.5 10^3/uL (1.5-3.5) 11/03/21 03:45 Fisher # (Auto) 1.1 10^3/uL (0.0-1.0) H 11/03/21 03:45 Eos # (Auto) 0.0 10^3/uL (0.0-0.7) 11/03/21 03:45 Baso # (Auto) 0.0 10^3/uL (0.0-0.1) 11/03/21 03:45 Absolute Nucleated RBC 0.15 x10^3/uL 11/03/21 03:45 Nucleated RBC % 1.0 /100WBC 11/03/21 03:45 Sodium 134 mmol/L (135-145) L 11/03/21 04:16 Potassium 5.2 mmol/L (3.5-5.0) H 11/03/21 04:16 Chloride 102 mmol/L (101-111) 11/03/21 04:16 Carbon Dioxide 15 mmol/L (21-32) L 11/03/21 04:16 Anion Gap 17.0 (6-13) H 11/03/21 04:16 BUN 33 mg/dL (6-20) H 11/03/21 04:16 Creatinine 1.5 mg/dL (0.6-1.2) H 11/03/21 04:16 Estimated GFR (MDRD) 46 (>89) L 11/03/21 04:16 Glucose 120 mg/dL (70-100) H 11/03/21 04:16 Lactic Acid 8.0 mmol/L (0.5-2.2) H* 11/03/21 07:41 Calcium 8.9 mg/dL (8.5-10.3) 11/03/21 04:16 Magnesium 2.0 mg/dL (1.7-2.8) 11/02/21 05:07 Total Bilirubin 1.4 mg/dL (0.2-1.0) H 11/03/21 04:16 AST 980 IU/L (10-42) H 11/03/21 04:16 ALT 633 IU/L (10-60) H 11/03/21 04:16 Alkaline Phosphatase 145 IU/L (42-121) H 11/03/21 04:16 Total Creatine Kinase 1454 IU/L (22-269) H* 11/03/21 04:16 Troponin I High Sens 227.0 ng/L (2.3-19.7) H* 11/03/21 04:16 B-Natriuretic Peptide 3278 pg/mL (5-100) H 11/03/21 03:45 Total Protein 7.0 g/dL (6.7-8.2) 11/03/21 04:16 Albumin 3.3 g/dL (3.2-5.5) 11/03/21 04:16 Globulin 3.7 g/dL (2.1-4.2) 11/03/21 04:16 Albumin/Globulin Ratio 0.9 (1.0-2.2) L 11/03/21 04:16 Vitamin B12 2376 pg/mL (180-914) H 11/02/21 05:07 Folate 14.58 ng/mL (5.90 - >24.8) 11/02/21 05:07 Urine Color YELLOW 11/01/21 13:30 Urine Clarity CLEAR (CLEAR) 11/01/21 13:30 Urine pH 5.5 PH (5.0-7.5) 11/01/21 13:30 Ur Specific [place] >=1.030 (1.002-1.030) H 11/01/21 13:30 Urine Protein TRACE mg/dL (NEGATIVE) 11/01/21 13:30 Urine Glucose (UA) NEGATIVE mg/dL (NEGATIVE) 11/01/21 13:30 Urine Ketones NEGATIVE mg/dL (NEGATIVE) 11/01/21 13:30 Urine Occult Blood NEGATIVE (NEGATIVE) 11/01/21 13:30 Urine Nitrite NEGATIVE (NEGATIVE) 11/01/21 13:30 Urine Bilirubin NEGATIVE (NEGATIVE) 11/01/21 13:30 Urine Urobilinogen 0.2 (NORMAL) E.U./dL (NORMAL) 11/01/21 13:30 Ur Leukocyte Esterase NEGATIVE (NEGATIVE) 11/01/21 13:30 Urine RBC 0-5 /HPF (0-5) 11/01/21 13:30 Urine WBC 0-3 /HPF (0-3) 11/01/21 13:30 Ur Squamous Epith Cells RARE Squamous (<= Few) 11/01/21 13:30 Urine Bacteria None Seen /HPF (None Seen) 11/01/21 13:30 Urine Culture Comments NOT INDICATED 11/01/21 13:30 Nasal Adenovirus (PCR) NOT DETECTED 11/01/21 18:13 Nasal B. parapertussis DNA (PCR) NOT DETECTED 11/01/21 18:13 Nasal Coronavir 229E PCR NOT DETECTED 11/01/21 18:13 Nasal Coronavir HKU1 PCR NOT DETECTED 11/01/21 18:13 Nasal Coronavir NL63 PCR NOT DETECTED 11/01/21 18:13 Nasal Coronavir OC43 PCR NOT DETECTED 11/01/21 18:13 Nasal Enterovir/Rhinovir PCR NOT DETECTED 11/01/21 18:13 Nasal Influenza B PCR NOT DETECTED 11/01/21 18:13 Nasal Influenza A PCR NOT DETECTED 11/01/21 18:13 Nasal Parainfluen 1 PCR NOT DETECTED 11/01/21 18:13 Nasal Parainfluen 2 PCR NOT DETECTED 11/01/21 18:13 Nasal Parainfluen 3 PCR NOT DETECTED 11/01/21 18:13 Nasal Parainfluen 4 PCR NOT DETECTED 11/01/21 18:13 Nasal RSV (PCR) NOT DETECTED 11/01/21 18:13 Nasal B.pertussis DNA PCR NOT DETECTED 11/01/21 18:13 Nasal C.pneumoniae (PCR) NOT DETECTED 11/01/21 18:13 Zach Human Metapneumo PCR NOT DETECTED 11/01/21 18:13 Nasal M.pneumoniae (PCR) NOT DETECTED 11/01/21 18:13 Nasal SARS-CoV-2 (PCR) NOT DETECTED 11/01/21 18:13 Ethyl Alcohol < 5.0 mg/dL 11/01/21 18:05
[2021-11-03] MEDS: DEXTROSE 5%-0.9% NACL 1,000 ML IV SCH ×2 (12:50→20:06)
[2021-11-03] MEDS: SODIUM CHLORIDE FLUSH 0.9% 10 ML SYRINGE IVP PRN ×2 (12:50→13:31)
[2021-11-03] MEDS: HYDROCORTISONE SUCCINATE 100 MG/2 ML VIAL IVP SCH ×2 (12:50→21:45)
[2021-11-03] MEDS: ONDANSETRON 4 MG/2 ML VIAL IVP PRN ×2 (13:31→20:06)
[2021-11-04] MEDS: SODIUM CHLORIDE FLUSH 0.9% 10 ML SYRINGE IVP SCH ×3 (00:13→16:49)
[2021-11-04] MEDS: DEXTROSE 5%-0.9% NACL 1,000 ML IV SCH ×3 (04:13→17:49)
[2021-11-04 05:07] LABS: BASOPHILS % (AUTO) 0.2 %; HCT - HEMATOCRIT 44.6 % (42.0-52.0); HGB - HEMOGLOBIN 13.7 g/dL (14.0-18.0); LYMPHOCYTES # (AUTO) 1.4 10^3/uL (1.5-3.5); LYMPHOCYTES % (AUTO) 8.9 %; MEAN CORPUSCULAR HEMOGLOBIN 32.5 pg (27.0-31.0); MEAN CORPUSCULAR HGB CONC 30.7 g/dL (32.0-36.0); MEAN CORPUSCULAR VOLUME 105.7 fL (80.0-94.0); MEAN PLATELET VOLUME 12.8 fL (7.4-11.4); MONOCYTES # (AUTO) 1.1 10^3/uL (0.0-1.0); MONOCYTES % (AUTO) 7.2 %; NEUTROPHILS % (AUTO) 82.5 %; NRBC ABSOLUTE COUNT (AUTO) 0.52 x10^3/uL; NUCLEATED RED BLOOD CELLS AUTO 3.3 /100WBC; PLT - PLATELET COUNT 173 10^3/uL (130-450); RED BLOOD COUNT 4.22 10^6/uL (4.70-6.10); RED CELL DISTRIBUTION WIDTH 16.4 % (12.0-15.0); WHITE BLOOD COUNT 15.7 x10^3/uL (4.8-10.8)
[2021-11-04] MEDS: HYDROCORTISONE SUCCINATE 100 MG/2 ML VIAL IVP SCH (05:21)
[2021-11-04 05:52] LABS: ALBUMIN 3.3 g/dL (3.2-5.5); ALBUMIN/GLOBULIN RATIO 0.9 (1.0-2.2); ALKALINE PHOSPHATASE 137 IU/L (42-121); ALT ALANINE AMINOTRANSFERASE 2956 IU/L (10-60); AST ASPARTATE AMINOTRANSFERASE > 5200 IU/L (10-42); BILIRUBIN,TOTAL 1.4 mg/dL (0.2-1.0); BUN - BLOOD UREA NITROGEN 50 mg/dL (6-20); CALCIUM 8.5 mg/dL (8.5-10.3); CARBON DIOXIDE - CO2 16 mmol/L (21-32); CHLORIDE 104 mmol/L (101-111); CREATININE 2.5 mg/dL (0.6-1.2); GFR - MDRD 25 (>89); GLUCOSE 152 mg/dL (70-100); POTASSIUM 5.5 mmol/L (3.5-5.0); SODIUM 134 mmol/L (135-145); TOTAL PROTEIN 6.8 g/dL (6.7-8.2)
[2021-11-04 05:56] LABS: CK- CREATINE KINASE 2266 IU/L (22-269)
[2021-11-04] MEDS: ASPIRIN EC 325 MG TABLET PO SCH (09:20)
[2021-11-04] MEDS: CHOLECALCIFEROL 5,000 UNIT CAPSULE PO SCH (09:20)
[2021-11-04] MEDS: CALCIUM CARB (OYSTER SHELL) 500 MG TABLET PO SCH (09:20)
[2021-11-04] MEDS: MULTIVITAMIN W/MINERALS TABLET PO SCH (09:20)
[2021-11-04] MEDS ORDERED: PHENOL THROAT SPRAY 177 ML MM PRN (10:08)
[2021-11-04] MEDS ORDERED: ONDANSETRON ODT 4 MG TABLET TL PRN (10:08)
[2021-11-04] MEDS ORDERED: GLYCOPYRROLATE 1 MG/5 ML VIAL SUBQ PRN (10:08)
[2021-11-04] MEDS ORDERED: CARBOXYMETHYLCELLULOSE OPHTH DROPS EACHEYE PRN (10:08)
[2021-11-04] MEDS ORDERED: MORPHINE SOL 10 MG/0.5 ML ORAL SYRINGE PO PRN (10:08)
[2021-11-04] MEDS ORDERED: LORazepam 1 MG TABLET PO PRN (10:08)
[2021-11-04] MEDS ORDERED: haloperidoL 1 MG TABLET PO PRN (10:08)
[2021-11-04] MEDS ORDERED: ACETAMINOPHEN 160 MG/5 ML SUSP UDC PO PRN (10:08)
[2021-11-04] MEDS ORDERED: ATROPINE 1% OPHTH DROPS 2 ML SL PRN (10:08)
--- NOTE | 2021-11-04 10:20 | PROVIDER PROGRESS NOTE ---
Assessment/Plan - Problem List (1) Shock Assessment/Plan: His blood pressure continues to be low His lactic acid level was very elevated. He has been hypothermic. He has other signs of organ failure from shock including worsening renal function, worsening LFTs, rising CK despite being on IV fluids. A bedside Echo was performed and shows severe RV failure He has continued worsening of multi organs, the plan will be to stop treatment and focus on comfort. The patient's sister showed me his POLST yesterday, which indicates he is wants no feeding tubes, no aggressive treatment, wants to focus on comfort. He is in critical condition and his prognosis is very poor. (2) Comfort measures only status Today I explained that he has multiorgan failure and he understood this. He and his sister both request that we transition him to comfort care, no further blood draws, blood pressure checks, comfort feeding only and will stop aggressive IV hydration. The patient himself wishes to go to [facility] for end-of-life, since the director is his personal friend. This information will be passed on to social work. A Hospice service consult will be ordered. (today is Friday, Hospice is not available for consult today) (3) Cor Pulmonale This was seen on echo and given the very large RV plus RVH, it was a longstanding problem. There is peripheral edema, ascites and pericardial effusion (with a normal albumin) signifying longstanding RV failure (4) Shock liver Conclusion/Plan: The LFTs are further worsening. The patient has no alcohol intake history and albumen was not excessively low. The CT abdomen showed no masses or other liver abnormality. The ascites is likely from right heart failure which is definitely present. This is most likely from shock liver, since he has worsening blood pressure, hypothermia, peripheral vasoconstriction on exam. (5) KENIA Conclusion/Plan: He is intravascularly volume depleted, even though he has leg edema, ascites and a pericardial effusion. This is all from severe cor pulmonale, severe RV failure, poor forward cardiac output of the right ventricle, from probable pulmonary hypertension. His BUN/creat have not yet improved with iv fluids. (6) Rhabdomyolysis Assessment/Plan: Likely secondary to patient's sedentary nature. His mobility and activities have been decreased due to spinal stenosis and recent C-spine surgery at [facility]. His sister came up from [facility] to help him recently. OT with home health was working with him at his residence. Creatinine kinase has papa nued to increase every day (7) Failure to thrive syndrome, adult Conclusion/Plan: Suspect severe protein calorie malnutrition. (8) Generalized weakness Conclusion/Plan: PT/OT evaluated him and he fatigued yesterday after 3 seconds! Comfort care and end-of-life are planned (9) Eczema Conclusion/Plan: The patient has a very unique physical exam that shows very taut and thick skin, he cannot even make a fist because of how tight his skin is. He does not know his underlying diagnosis for this. Records were therefore requested from his PCP Dr. Guzman. The sister at bedside said he has never had a biopsy to know if he has something else like scleroderma or Sjogren's syndrome or lupus (10) Elevated troponin Conclusion/Plan: He has an elevated but flat troponins (100>> 82), and a moderately elevated be BNP (1696>> 2017 after iv hydration). Chest x-ray was clear, and no evidence of CHF clinically, but he is dehydrated. From Dr. Guzman's office records there is no cardiac history except for HTN. - Current Meds Current Meds: Current Medications Generic Name Dose Route Start Last Admin Trade Name Freq PRN Reason Stop Dose Admin Acetaminophen 650 mg 11/01/21 19:45 11/03/21 01:14 Acetaminophen 325 Mg Tablet PO 650 mg Q4HR PRN Administration Pain 1 to 4, or Fever Hydromorphone HCl 0.5 mg 11/03/21 07:08 11/03/21 07:21 Hydromorphone 0.5 Mg/0.5 Ml Syringe IVP 0.5 mg Q4H PRN Administration PAIN Ondansetron HCl 4 mg 11/01/21 19:45 11/03/21 20:06 Ondansetron 4 Mg/2 Ml Vial IVP 4 mg Q6HR PRN Administration Nausea / Vomiting Sodium Chloride 10 ml 11/01/21 19:45 11/03/21 13:31 Sodium Chloride Flush 0.9% 10 Ml Syringe IVP 10 ml PRN PRN Administration NEEDED PER PROVIDER ORDERS Sodium Chloride 10 ml 11/02/21 01:00 11/04/21 09:20 Sodium Chloride Flush 0.9% 10 Ml Syringe IVP Not Given 0100,0900,1700 [facility] Lab Result Fish Bone Diagrams: 11/04/21 04:54 11/04/21 04:54 - Additional Planning My Orders: My Active Orders 11/03/21 Dinner DIET [Dysphagia - Puree] [DIET] 11/04/21 Hospice Referral for Post-Discharge Services [CONS] Routine 11/04/21 10:08 Comfort Care [RC] QSHIFT Cooling Unit [RC] PRN Claros Insertion [RC] QSHIFT Oral Care - Nursing [RC] BID Turn and Reposition [RC] PRN Warming Unit [RC] PRN Acetaminophen [Tylenol] 640 mg PO Q4H PRN Atropine 1% Ophth Drops [Isopto Atropine 1% Ophth Drops] 1 - 4 drops SL Q2H PRN Carboxymethylcellulose 1% Opht [Refresh 1% Ophth Drops] 1 drops EACHEYE QID PRN Glycopyrrolate [Robinul] 0.2 mg SUBQ Q4H PRN LORazepam [Ativan] 1 mg PO Q6H PRN Morphine Oral Soln [Roxanol] 10 mg PO Q2HR PRN Ondansetron Odt [Zofran Odt] 4 mg TL Q8H PRN haloperidoL [Haldol] 1 mg PO Q2H PRN phenoL [Chloraseptic] 1 sprays MM Q2H PRN 11/04/21 10:08 Dextrose 5%-0.9% NaCl [D5ns] 1,000 ml IV 40 mls/hr 11/04/21 10:10 Claros Continuation and Care [RC] QSHIFT 11/04/21 11:00 Scopolamine Patch [Transderm-Scop] 1 patch TOP Q3D 11/04/21 Lunch Clear Liquid Diet [DIET] Subjective - Subjective Patient Reports: Nausea, Other (Weakness) Objective Vital Signs: Vital Signs - 24 hr 11/03/21 11/03/21 11/03/21 13:00 14:33 15:35 Temperature 35.9 C L 35.9 C L 36.1 C L Heart Rate 98 Heart Rate [ 98 94 Brachial] Respiratory 20 20 21 Rate Blood Pressure 102/90 H 110/73 [Right Brachial artery] O2 Saturation 11/03/21 11/03/21 11/04/21 20:15 20:38 01:00 Temperature 36.2 C L 36.2 C L Heart Rate Heart Rate [ 96 88 Brachial] Respiratory 20 21 20 Rate Blood Pressure 94/72 104/76 [Right Brachial artery] O2 Saturation 91 L 96 11/04/21 11/04/21 05:00 09:00 Temperature 36.2 C L 35.9 C L Heart Rate Heart Rate [ 67 77 Brachial] Respiratory 18 16 Rate Blood Pressure 108/82 H 108/80 [Right Brachial artery] O2 Saturation 94 96 Oxygen O2 Source Nasal cannula I&O (Last 24 Hrs): Intake and Output Totals x24h 11/02/21 11/03/21 11/04/21 23:59 23:59 23:59 Intake Total 3788.333 3503.333 1300 Balance 3788.333 3503.333 1300 General: Alert, Oriented x3, Other (Appears fatigued, speech is very slow) HEENT: Mucous membr. moist/pink Neck: Supple Neuro: Alert, Non Focal, Other (Generalized weakness, slow speech) Cardiovascular: Regular rate (Distant heart sounds, no rub is heard) Respiratory: No respiratory distress, Breath sounds nml Abdomen: Soft, No tenderness Extremities: Other (He has 3+ edema to the mid thighs. The skin of his upper an lower extremities is taut and shiny.) - Results Results: Laboratory Results WBC 15.7 x10^3/uL (4.8-10.8) H 11/04/21 04:54 RBC 4.22 10^6/uL (4.70-6.10) L 11/04/21 04:54 Hgb 13.7 g/dL (14.0-18.0) L 11/04/21 04:54 Hct 44.6 % (42.0-52.0) 11/04/21 04:54 MCV 105.7 fL (80.0-94.0) H 11/04/21 04:54 MCH 32.5 pg (27.0-31.0) H 11/04/21 04:54 MCHC 30.7 g/dL (32.0-36.0) L 11/04/21 04:54 RDW 16.4 % (12.0-15.0) H 11/04/21 04:54 Plt Count 173 10^3/uL (130-450) 11/04/21 04:54 MPV 12.8 fL (7.4-11.4) H 11/04/21 04:54 Neut # (Auto) 13.0 10^3/uL (1.5-6.6) H 11/04/21 04:54 Lymph # (Auto) 1.4 10^3/uL (1.5-3.5) L 11/04/21 04:54 [place] # (Auto) 1.1 10^3/uL (0.0-1.0) H 11/04/21 04:54 Eos # (Auto) 0.0 10^3/uL (0.0-0.7) 11/04/21 04:54 Baso # (Auto) 0.0 10^3/uL (0.0-0.1) 11/04/21 04:54 Absolute Nucleated RBC 0.52 x10^3/uL 11/04/21 04:54 Nucleated RBC % 3.3 /100WBC 11/04/21 04:54 Sodium 134 mmol/L (135-145) L 11/04/21 04:54 Potassium 5.5 mmol/L (3.5-5.0) H 11/04/21 04:54 Chloride 104 mmol/L (101-111) 11/04/21 04:54 Carbon Dioxide 16 mmol/L (21-32) L 11/04/21 04:54 Anion Gap 14.0 (6-13) H 11/04/21 04:54 BUN 50 mg/dL (6-20) H 11/04/21 04:54 Creatinine 2.5 mg/dL (0.6-1.2) H 11/04/21 04:54 Estimated GFR (MDRD) 25 (>89) L 11/04/21 04:54 Glucose 152 mg/dL (70-100) H 11/04/21 04:54 Lactic Acid 7.9 mmol/L (0.5-2.2) H* 11/03/21 14:12 Calcium 8.5 mg/dL (8.5-10.3) 11/04/21 04:54 Magnesium 2.0 mg/dL (1.7-2.8) 11/02/21 05:07 Total Bilirubin 1.4 mg/dL (0.2-1.0) H 11/04/21 04:54 AST > 5200 IU/L (10-42) H 11/04/21 04:54 ALT 2956 IU/L (10-60) H 11/04/21 04:54 Alkaline Phosphatase 137 IU/L (42-121) H 11/04/21 04:54 Total Creatine Kinase 2266 IU/L (22-269) H* 11/04/21 04:54 Troponin I High Sens 278.9 ng/L (2.3-19.7) H* 11/03/21 14:12 B-Natriuretic Peptide 5552.00 pg/mL (5-100) H 11/04/21 04:54 Total Protein 6.8 g/dL (6.7-8.2) 11/04/21 04:54 Albumin 3.3 g/dL (3.2-5.5) 11/04/21 04:54 Globulin 3.5 g/dL (2.1-4.2) 11/04/21 04:54 Albumin/Globulin Ratio 0.9 (1.0-2.2) L 11/04/21 04:54 Vitamin B12 2376 pg/mL (180-914) H 11/02/21 05:07 Folate 14.58 ng/mL (5.90 - >24.8) 11/02/21 05:07 Urine Color YELLOW 11/01/21 13:30 Urine Clarity CLEAR (CLEAR) 11/01/21 13:30 Urine pH 5.5 PH (5.0-7.5) 11/01/21 13:30 Ur Specific [place] >=1.030 (1.002-1.030) H 11/01/21 13:30 Urine Protein TRACE mg/dL (NEGATIVE) 11/01/21 13:30 Urine Glucose (UA) NEGATIVE mg/dL (NEGATIVE) 11/01/21 13:30 Urine Ketones NEGATIVE mg/dL (NEGATIVE) 11/01/21 13:30 Urine Occult Blood NEGATIVE (NEGATIVE) 11/01/21 13:30 Urine Nitrite NEGATIVE (NEGATIVE) 11/01/21 13:30 Urine Bilirubin NEGATIVE (NEGATIVE) 11/01/21 13:30 Urine Urobilinogen 0.2 (NORMAL) E.U./dL (NORMAL) 11/01/21 13:30 Ur Leukocyte Esterase NEGATIVE (NEGATIVE) 11/01/21 13:30 Urine RBC 0-5 /HPF (0-5) 11/01/21 13:30 Urine WBC 0-3 /HPF (0-3) 11/01/21 13:30 Ur Squamous Epith Cells RARE Squamous (<= Few) 11/01/21 13:30 Urine Bacteria None Seen /HPF (None Seen) 11/01/21 13:30 Urine Culture Comments NOT INDICATED 11/01/21 13:30 Nasal Adenovirus (PCR) NOT DETECTED 11/01/21 18:13 Nasal B. parapertussis DNA (PCR) NOT DETECTED 11/01/21 18:13 Nasal Coronavir 229E PCR NOT DETECTED 11/01/21 18:13 Nasal Coronavir HKU1 PCR NOT DETECTED 11/01/21 18:13 Nasal Coronavir NL63 PCR NOT DETECTED 11/01/21 18:13 Nasal Coronavir OC43 PCR NOT DETECTED 11/01/21 18:13 Nasal Enterovir/Rhinovir PCR NOT DETECTED 11/01/21 18:13 Nasal Influenza B PCR NOT DETECTED 11/01/21 18:13 Nasal Influenza A PCR NOT DETECTED 11/01/21 18:13 Nasal Parainfluen 1 PCR NOT DETECTED 11/01/21 18:13 Nasal Parainfluen 2 PCR NOT DETECTED 11/01/21 18:13 Nasal Parainfluen 3 PCR NOT DETECTED 11/01/21 18:13 Nasal Parainfluen 4 PCR NOT DETECTED 11/01/21 18:13 Nasal RSV (PCR) NOT DETECTED 11/01/21 18:13 Nasal B.pertussis DNA PCR NOT DETECTED 11/01/21 18:13 Nasal C.pneumoniae (PCR) NOT DETECTED 11/01/21 18:13 Zach Human Metapneumo PCR NOT DETECTED 11/01/21 18:13 Nasal M.pneumoniae (PCR) NOT DETECTED 11/01/21 18:13 Nasal SARS-CoV-2 (PCR) NOT DETECTED 11/01/21 18:13 Ethyl Alcohol < 5.0 mg/dL 11/01/21 18:05
[2021-11-04] MEDS ORDERED: SCOPOLAMINE PATCH TOP SCH (11:00)
[2021-11-04 12:55] VITALS: BP 103/83
[2021-11-04] MEDS: HYDROmorphone 0.5 MG/0.5 ML SYRINGE IVP PRN (17:59)
--- NOTE | 2021-11-04 23:38 | DISCHARGE SUMMARY ---
Discharge Summary Admit Date: 11/01/21 Discharge Date: 11/04/21 Discharging Provider: Maritza Orellana Primary Care Provider: Ivana Guzman Code Status: Do Not Attempt Resuscitation Discharge Disposition: 20 - DIAGNOSES Admission Diagnoses: Rhabdomyolysis Failure to thrive syndrome, adult Generalized weakness Discharge Diagnoses with Status of Each Condition: Shock: Patient was made comfort care. Patient Cor pulmonale: Patient was made comfort care. Patient Shock Liver: Patient was made comfort care. Patient Acute kidney injury: Patient was made comfort care. Patient Rhabdomyolysis: Patient was made comfort care. Patient Failure to thrive syndrome, adult: Patient was made comfort care. Patient expir ed Generalized weakness: Patient was made comfort care. Patient - HPI History of Present Illness: Patient is a 75-year-old male with medical history significant for Cervical spinal stenosis status post cervical surgery and who is currently on no medic ations. He presented to the ED at the behest of his occupational therapist. His cervical spine surgery was done at [facility] in [facility]. Prior to the surgery he was falling often. Since the surgery he has mostly been using a wheelchair. He has been less mobile and less active. He had therapy set up through [facility] and at the initial visit with the occupational therapist today it was noted that he was hypoxic. Thus the therapist advised him to go to the emergency department. He was brought in via EMS. Upon further work-up he was noted to have a creatinine kinase of 1175, troponin 100.6 with a repeat troponin of 82 and a BNP of 1696. His liver enzymes were slightly elevated with an AST/ALT/alk phos at 155/141/173 respectively. As a result he was presented for admission for further treatment. Upon presentation at bedside he is resting comfortably. He appears very frail. He reports decreased oral intake due to decreased appetite. He receives meals daily from [employer] but does not often eat them. He is also very sedentary and as a result has some ulcers on his bottom. The skin on his hands and feet are very tight. He is unable to clench his hands into a fist due to this tightness. His right hand was in glove due to feeling cold. He lives alone. His sister just flew in from [place] and will be visiting for a little while. Review of system he denies chest pain, dyspnea, abdominal pain. He reported nausea but no vomiting. He denied fever or chills. - HOSPITAL COURSE Hospital Course: Patient was admitted and started on IV hydration with normal saline. PT/OT was asked to evaluate and treat. Patient's systolic blood pressures were low despite IV hydration for 24 hours. It fluctuated between 70 and 90. He complained of abdominal pain. CT abdomen pelvis without contrast was unremarkable. He was hypothermic and required a warming unit to be placed over him. Lactic acid check was elevated at 8. IV hydration was continued. 2D echocardiogram done on 11/04/2021 showed an ejection fraction of 55%. Small left ventricle noted. Septum is concave inward towards the left ventricle. Paradoxical septal motion noted. Severely depressed right ventricle contractility, consistent with right heart overload, longstanding. Dilated main pulmonary artery and coronary sinus consistent with right heart overload longstanding. Tricuspid valve prolapse noted with severe tricuspid regurgitation. Moderate circumferential pericardial effusion was present no evidence of tamponade. Over 48 hours patient's liver function enzymes worsened. AST was greater than 5200, ALT 2956 and alk phos 137. Total bilirubin 1.4. Patient's BNP was 5552. Creatinine was 2.5 and potassium 5.5. He had cor pulmonale and shock liver. After discussion between rounding provider, patient's sister and the patient, the patient was made comfort care during the day on 11/04/21. On 11/04/21 it was brought to my attention that the patient was unresponsive. Upon presentation at bedside patient was unresponsive to tactile or verbal stimuli. Heart and lung sounds were absent on auscultation. Carotid and radial pulses were absent bilaterally. Pupils were fixed dilated and unreactive to light. Patient was pronounced at 2330 on 11/04/2021. Patient's sister was notified. - ALLERGIES Allergies/Adverse Reactions: Allergies Allergy/AdvReac Type Severity Reaction Status Date / Time No Known Drug Allergies Allergy Verified 11/01/21 12:19 - MEDICATIONS Home Medications: Ambulatory Orders Medication Instructions Recorded Confirmed Acetaminophen [Acetaminophen Extra 1,000 mg PO DAILY PRN 11/02/21 11/02/21 Strength] Aspirin EC [Ecotrin] 325 mg PO DAILY 11/02/21 11/02/21 Calcium Carbonate/Vitamin D3 1 each PO BID 11/02/21 11/02/21 [Calcium 500 mg Chewable Tablet] Cholecalciferol [Vitamin D3] 5,000 unit PO DAILY 11/02/21 11/02/21 Cyanocobalamin (Vitamin B-12) 1,000 mcg PO DAILY 11/02/21 11/02/21 [Vitamin B-12] - LABS Result Diagrams: 11/04/21 04:54 11/04/21 04:54 - TIME SPENT Time Spent in Discharge (Minutes): 15
--- NOTE | 2021-11-04 23:39 | Discharge Plan ---
Discharge Plan Problem Reviewed?: Yes Disposition: 20 No Smoking: If you smoke, Please STOP! Call for help.
== END 2021-11-04 23:30 | disposition expired | DRG 557 ==
LOC: EDUNIT# → ED 12:04 → MS2 19:45
PROVIDERS: ADMIT Internal Medicine; ATTEND Internal Medicine
DX: M62.82 Rhabdomyolysis (principal); K72.00 Acute and subacute hepatic failure without coma; E43 Unspecified severe protein-calorie malnutrition; R74.8 Abnormal levels of other serum enzymes; Z20.822 Contact with and (suspected) exposure to COVID-19; R57.9 Shock, unspecified; R22.43 Localized swelling, mass and lump, lower limb, bilateral; R22.33 Localized swelling, mass and lump, upper limb, bilateral; N17.9 Acute kidney failure, unspecified; Z68.1 Body mass index [BMI] 19.9 or less, adult; I31.3 Pericardial effusion (noninflammatory); I50.810 Right heart failure, unspecified; I11.0 Hypertensive heart disease with heart failure; I27.81 Cor pulmonale (chronic); R62.7 Adult failure to thrive; R53.1 Weakness; L89.309 Pressure ulcer of unspecified buttock, unspecified stage; E86.0 Dehydration; L30.9 Dermatitis, unspecified; R77.8 Other specified abnormalities of plasma proteins; R68.0 Hypothermia, not associated with low environmental temperature; R19.7 Diarrhea, unspecified; I45.10 Unspecified right bundle-branch block; I27.20 Pulmonary hypertension, unspecified; Z51.5 Encounter for palliative care; Z98.1 Arthrodesis status; Z66 Do not resuscitate; Z99.3 Dependence on wheelchair
CPT/HCPCS: 36415; 71045; 74176; 80053; 81001; 82550; 82607; 82746; 83605; 83735; 83880; 84484; 85025; 87633; 93005; 93925; 96360; 97162; 97166; 99284; 99285; A9270; G0480; J1170; J1650; J3490; 80320; 87086